=== PATIENT | female | born 1975 | race Two or more races ===

== ENCOUNTER 2019-01-20 12:54 | Inpatient (IN) | payer SELFPAY ==
[~2019-01-20] VITALS: Ht 170.2 cm; Wt 132.9 kg
[2019-01-20 14:21] LABS: PLATELET COUNT 301 x10^3mcL (130-400)
[2019-01-20 14:24] LABS: BILIRUBIN TOTAL 0.8 mg/dL (0.20-1.00); CALCIUM 8.3 mg/dL (8.5-10.1); CREATININE SERUM 1.3 mg/dL (0.6-1.0); POTASSIUM SERUM 4.8 mmol/L (3.5-5.1); RED CELL DISTRIBUTION WIDTH 16.8 % (11.5-14.5)
[2019-01-20 14:28] LABS: TOTAL PROTEIN, SERUM 5.9 g/dL (6.4-8.2)
[2019-01-20 14:54] LABS: BAND NEUTROPHIL 4 % (0-10); METAMYELOCTE 6 % (0-2); MONOCYTE 3 % (0-7); MYELOCYTE 1 % (0-2); PLATELET MORPHOLOGY FEW LARGE PLATELET; SEGMENTED NEUTROPHILS 76 % (37-75); rbc morphology (normal/abnorm) ABNORMAL (NORMAL); tear drop cell (dacryocyte) 1+
[2019-01-20] MEDS ORDERED: LANTUS SOLOS100 U/M1 SQ (15:53)
[2019-01-20] MEDS ORDERED: METFORMIN HYDR500 M1 PO (15:53)
[2019-01-20 16:09] LABS: MAGNESIUM 1.8 mg/dL (1.8-2.4); PHOSPHOROUS 4.8 mg/dL (2.5-4.9)
[2019-01-20 16:10] LABS: CHOLESTEROL/HDL RATIO 4.7
[2019-01-20 16:33] LABS: T3 TOTAL 0.66 ng/mL
[2019-01-20 16:37] LABS: FREE T4 1.48 ng/dL (0.76-1.46); FREE THYROXINE INDEX 4.6 ug/dL (1.4-4.5); T4(THYROXINE) 11.1 ug/dL (4.7-13.3)
[2019-01-20 16:37] LABS: microscopic required? NO
[2019-01-20 16:55] LABS: UA SPECIFIC GRAVITY 1.015 (1.005-1.035); urine erythrocyte NEGATIVE (NEGATIVE)
[2019-01-20 17:04] LABS: AMPHETAMINE QUAL UR NONE DETECTED (See below)
[2019-01-20 17:36] VITALS: BP 127/63
[2019-01-20 20:00] VITALS: BP 111/55
[2019-01-20 21:59] LABS: rbc morphology (normal/abnorm) ABNORMAL (NORMAL)
[2019-01-20 22:12] LABS: CALCIUM 7.4 mg/dL (8.5-10.1); CARBON DIOXIDE 19.7 mmol/L (21-32); CHLORIDE SERUM 107 mmol/L (98-107); GFR1 > 60 mL/min; GLUCOSE SERUM 228 mg/dL (74-106); PHOSPHOROUS 1.9 mg/dL (2.5-4.9); POTASSIUM SERUM 3.7 mmol/L (3.5-5.1); SODIUM SERUM 138 mmol/L (136-145)
[2019-01-20 22:58] LABS: MAGNESIUM 1.8 mg/dL (1.8-2.4)
[2019-01-21 00:37] VITALS: BP 107/67
[2019-01-21 00:37] LABS: CARBON DIOXIDE 24.9 mmol/L (21-32); CHLORIDE SERUM 108 mmol/L (98-107); CREATININE SERUM 0.9 mg/dL (0.6-1.0); GFR1 > 60 mL/min; GLUCOSE SERUM 115 mg/dL (74-106); MAGNESIUM 1.7 mg/dL (1.8-2.4); PHOSPHOROUS 2.5 mg/dL (2.5-4.9); POTASSIUM SERUM 3.6 mmol/L (3.5-5.1); SODIUM SERUM 141 mmol/L (136-145)
[2019-01-21 01:18] LABS: RED CELL DISTRIBUTION WIDTH 14.5 % (11.5-14.5)
[2019-01-21 01:20] LABS: BASOPHIL % 2.1 % (0-2); PLATELET COUNT 113 x10^3mcL (130-400)
[2019-01-21 01:39] LABS: rbc morphology (normal/abnorm) ABNORMAL (NORMAL)
[2019-01-21 03:27] VITALS: BP 101/60
[2019-01-21 05:22] LABS: BASOPHIL % 0.4 % (0-2)
[2019-01-21 05:30] LABS: PLATELET COUNT 91 x10^3mcL (130-400); RED CELL DISTRIBUTION WIDTH 14.9 % (11.5-14.5)
[2019-01-21 05:32] LABS: CALCIUM 6.8 mg/dL (8.5-10.1); CARBON DIOXIDE 21.3 mmol/L (21-32); CHLORIDE SERUM 109 mmol/L (98-107); CREATININE SERUM 0.9 mg/dL (0.6-1.0); GFR1 > 60 mL/min; GLUCOSE SERUM 194 mg/dL (74-106); MAGNESIUM 1.7 mg/dL (1.8-2.4); PHOSPHOROUS 2.6 mg/dL (2.5-4.9); POTASSIUM SERUM 3.4 mmol/L (3.5-5.1); SODIUM SERUM 139 mmol/L (136-145); rbc morphology (normal/abnorm) ABNORMAL (NORMAL)
[2019-01-21 08:00] VITALS: BP 113/65
[2019-01-21 12:00] VITALS: BP 105/61
[2019-01-21 18:00] VITALS: BP 103/63
[2019-01-21 20:00] VITALS: BP 113/71
[2019-01-22] VITALS: BP 99/65
[2019-01-22 00:48] LABS: BASOPHIL % 1.1 % (0-2)
[2019-01-22 01:03] LABS: PLATELET COUNT 106 x10^3mcL (130-400)
[2019-01-22 04:00] VITALS: BP 105/58
[2019-01-22 05:21] LABS: CALCIUM 7.6 mg/dL (8.5-10.1); CARBON DIOXIDE 21.7 mmol/L (21-32); CHLORIDE SERUM 108 mmol/L (98-107); CREATININE SERUM 0.8 mg/dL (0.6-1.0); GFR1 > 60 mL/min; GLUCOSE SERUM 174 mg/dL (74-106); POTASSIUM SERUM 3.4 mmol/L (3.5-5.1); SODIUM SERUM 140 mmol/L (136-145)
[2019-01-22 05:29] LABS: BASOPHIL % 0.6 % (0-2)
[2019-01-22 05:30] LABS: PLATELET COUNT 102 x10^3mcL (130-400); RED CELL DISTRIBUTION WIDTH 14.9 % (11.5-14.5)
[2019-01-22 07:30] VITALS: BP 112/66
[2019-01-22 07:35] VITALS: Ht 170.2 cm; Wt 132.9 kg
[2019-01-22 13:45] VITALS: BP 116/80
[2019-01-22 19:02] VITALS: BP 114/69
[2019-01-22 19:47] VITALS: BP 109/74
[2019-01-23 04:35] VITALS: BP 96/60
[2019-01-23 06:19] LABS: BASOPHIL % 0.5 % (0-2)
[2019-01-23 07:06] LABS: PLATELET COUNT 108 x10^3mcL (130-400); RED CELL DISTRIBUTION WIDTH 15.6 % (11.5-14.5)
[2019-01-23 07:14] LABS: CALCIUM 7.9 mg/dL (8.5-10.1); CARBON DIOXIDE 23.5 mmol/L (21-32); CHLORIDE SERUM 110 mmol/L (98-107); CREATININE SERUM 0.7 mg/dL (0.6-1.0); GFR1 > 60 mL/min; GLUCOSE SERUM 148 mg/dL (74-106); SODIUM SERUM 142 mmol/L (136-145)
[2019-01-23 08:57] VITALS: BP 114/67
[2019-01-23] MEDS ORDERED: PROPRANOLOL HCL20 MG PO (11:10)
[2019-01-23] MEDS ORDERED: GOOD SENSE OMEP20 MG PO (11:11)
[2019-01-23 12:57] VITALS: BP 114/67
== END 2019-01-23 14:05 | disposition home or self-care (01) | DRG 871 ==
LOC: ED 12:54 → IC 15:39 → DU 01-22 13:42
PROVIDERS: Emergency Medicine; Internal Medicine Gastroenterology; ADMIT Family Medicine
PROC: 02HV33Z Insertion of Infusion Device into Superior Vena Cava, Percutaneous Approach (ICD-10-PCS; 2019-01-20)
PROC: B548ZZA Ultrasonography of Superior Vena Cava, Guidance (ICD-10-PCS; 2019-01-20)
PROC: 0W3P8ZZ Control Bleeding in Gastrointestinal Tract, Via Natural or Artificial Opening Endoscopic (ICD-10-PCS; principal; 2019-01-20 21:30)
PROC: 30233N1 Transfusion of Nonautologous Red Blood Cells into Peripheral Vein, Percutaneous Approach (ICD-10-PCS; 2019-01-20 21:30)
DX: A41.9 Sepsis, unspecified organism (principal); E11.10 Type 2 diabetes mellitus with ketoacidosis without coma; N17.0 Acute kidney failure with tubular necrosis; K92.2 Gastrointestinal hemorrhage, unspecified; E44.0 Moderate protein-calorie malnutrition; Z68.41 Body mass index [BMI] 40.0-44.9, adult; E11.65 Type 2 diabetes mellitus with hyperglycemia; E03.9 Hypothyroidism, unspecified; E86.0 Dehydration; I86.4 Gastric varices; Z86.718 Personal history of other venous thrombosis and embolism; Z86.711 Personal history of pulmonary embolism; Z83.3 Family history of diabetes mellitus; K52.9 Noninfective gastroenteritis and colitis, unspecified; D50.0 Iron deficiency anemia secondary to blood loss (chronic); E87.6 Hypokalemia; E78.5 Hyperlipidemia, unspecified
CPT/HCPCS: 36556; 43235; 82962; 83880; 84439; 87804; C9113; J0696; J1200; J1642; J1815; J2060; J2250; J2310; J2354; J2405; J2543; J2550; J2765; J3010; J3480; J3490; J7030; J7040; J7050; P9016; Q0092; Q0163; Q9966; Q9967